=== PATIENT | male | born 1940 ===

== ENCOUNTER 2017-09-27 14:18 | Emergency (ER) | payer OTHER ==
[~2017-09-27] VITALS: Ht 188 cm; Wt 79.4 kg
[~2017-09-27 14:18] MED LIST: ASA81 MG; ATACAND16 MG; COLCHICINE0.6 MG; FLOMAX; VYTORIN 10/10 T1 TAB
[2017-09-27] MEDS ORDERED: ALLOPURINOL1 GM (14:28)
[2017-09-27] MEDS ORDERED: AMBIEN5 MG (14:29)
[2017-09-27] MEDS ORDERED: ANDRODERM1 EAC1 (14:30)
== END 2017-09-27 21:44 | disposition home or self-care (01) ==
LOC: ER 14:18
DX: J18.1 Lobar pneumonia, unspecified organism (principal); E86.0 Dehydration; B34.9 Viral infection, unspecified; J11.1 Influenza due to unidentified influenza virus with other respiratory manifestations

== ENCOUNTER 2017-09-30 15:15 | Inpatient (IN) | payer OTHER ==
[~2017-09-30] VITALS: Ht 175.3 cm; Wt 66.7 kg
[~2017-09-30 15:15] MED LIST changes: +ALLOPURINOL1 GM; +AMBIEN5 MG; +ANDRODERM1 EAC1
[2017-09-30] MEDS ORDERED: AMLODIPINE BES2.5 MG (15:32)
[2017-09-30] MEDS ORDERED: SIMVASTATIN10 MG (15:33)
[2017-09-30] MEDS ORDERED: LANSOPRAZOLE30 MG (15:33)
[2017-10-05] MEDS ORDERED: CANDESARTAN CILE8 MG PO (13:51)
[2017-10-05] MEDS ORDERED: ASA-EC81 MG PO (13:52)
[2017-10-05] MEDS ORDERED: SIMVASTATIN10 MG PO (13:52)
[2017-10-05] MEDS ORDERED: NORVASC5 MG PO (13:52)
[2017-10-05] MEDS ORDERED: DHEA TABLET1 EACH PO (13:52)
[2017-10-05] MEDS ORDERED: ALLOPURINOL100 MG PO (13:53)
[2017-10-05] MEDS ORDERED: AMBIEN CR12.5 MG PO (13:53)
[2017-10-05] MEDS ORDERED: PRILOSEC OTC20 MG PO (13:53)
[2017-10-05] MEDS ORDERED: TAMS0.4C PO (13:53)
[2017-10-05] MEDS ORDERED: CIALIS2.5 MG PO (13:54)
== END 2017-10-18 11:03 | disposition designated cancer center or children's hospital (05) | DRG 280 ==
LOC: ER 15:15 → MEDI 18:59
PROC: 3E0F7GC Introduction of Other Therapeutic Substance into Respiratory Tract, Via Natural or Artificial Opening (ICD-10-PCS; 2017-09-30)
PROC: 4A12X4Z Monitoring of Cardiac Electrical Activity, External Approach (ICD-10-PCS; 2017-09-30)
PROC: BW24ZZZ Computerized Tomography (CT Scan) of Chest and Abdomen (ICD-10-PCS; 2017-10-01)
PROC: B246ZZZ Ultrasonography of Right and Left Heart (ICD-10-PCS; 2017-10-01)
PROC: BT43ZZZ Ultrasonography of Bilateral Kidneys (ICD-10-PCS; 2017-10-01)
PROC: BW3GY0Z Magnetic Resonance Imaging (MRI) of Pelvic Region using Other Contrast, Unenhanced and Enhanced (ICD-10-PCS; 2017-10-03)
PROC: BW30Y0Z Magnetic Resonance Imaging (MRI) of Abdomen using Other Contrast, Unenhanced and Enhanced (ICD-10-PCS; 2017-10-03)
PROC: 0BBF3ZX Excision of Right Lower Lung Lobe, Percutaneous Approach, Diagnostic (ICD-10-PCS; principal; 2017-10-04)
PROC: C23GYZZ Positron Emission Tomographic (PET) Imaging of Myocardium using Other Radionuclide (ICD-10-PCS; 2017-10-12)
PROC: 4A12XM4 Monitoring of Cardiac Stress, External Approach (ICD-10-PCS; 2017-10-12)
PROC: 3E033HZ Introduction of Radioactive Substance into Peripheral Vein, Percutaneous Approach (ICD-10-PCS; 2017-10-12)
PROC: 0W3P8ZZ Control Bleeding in Gastrointestinal Tract, Via Natural or Artificial Opening Endoscopic (ICD-10-PCS; 2017-10-17)
PROC: B246ZZZ Ultrasonography of Right and Left Heart (ICD-10-PCS; 2017-10-18)
DX: I21.4 Non-ST elevation (NSTEMI) myocardial infarction (principal); J18.9 Pneumonia, unspecified organism; I50.33 Acute on chronic diastolic (congestive) heart failure; I13.0 Hypertensive heart and chronic kidney disease with heart failure and stage 1 through stage 4 chronic kidney disease, or unspecified chronic kidney disease; D62 Acute posthemorrhagic anemia; C34.31 Malignant neoplasm of lower lobe, right bronchus or lung; J90 Pleural effusion, not elsewhere classified; C34.32 Malignant neoplasm of lower lobe, left bronchus or lung; C79.51 Secondary malignant neoplasm of bone; N17.8 Other acute kidney failure; N28.89 Other specified disorders of kidney and ureter; I24.9 Acute ischemic heart disease, unspecified; E78.4 Other hyperlipidemia; N40.0 Benign prostatic hyperplasia without lower urinary tract symptoms; E86.0 Dehydration; M10.09 Idiopathic gout, multiple sites; J43.2 Centrilobular emphysema; R91.8 Other nonspecific abnormal finding of lung field; N18.1 Chronic kidney disease, stage 1; G89.18 Other acute postprocedural pain; D63.0 Anemia in neoplastic disease; K64.3 Fourth degree hemorrhoids
CPT/HCPCS: 72195; 74181